=== PATIENT | female | born 1980 | race African-American/Black ===

== ENCOUNTER 2017-02-04 20:28 | Emergency (ER) | payer BC, OTHER ==
[~2017-02-04] VITALS: Ht 172.7 cm; Wt 122.5 kg
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
[2017-02-04] MEDS ORDERED: NO MEDICATIONS (20:40)
== END 2017-02-04 23:31 | disposition home or self-care (01) ==
LOC: SED 20:28
DX: S16.1XXA Strain of muscle, fascia and tendon at neck level, initial encounter (principal); S29.012A Strain of muscle and tendon of back wall of thorax, initial encounter; S60.222A Contusion of left hand, initial encounter; Z88.1 Allergy status to other antibiotic agents; V43.52XA Car driver injured in collision with other type car in traffic accident, initial encounter; Y92.410 Unspecified street and highway as the place of occurrence of the external cause
CPT/HCPCS: 73130; 96372; 99284; J1885